=== PATIENT | female | born 1965 | race Caucasian/White ===

== ENCOUNTER → 2018-03-30 | Outpatient (CLI) | payer BC ==
--- NOTE | 2018-03-30 11:58 | ECHOF ---
Referral Reason:[id number],R00.2 palpitations, R53.83 fatigue MEASUREMENTS -------- HEIGHT: 165.1 cm WEIGHT: 72.6 kg BP: IVSd: 1.1 cm (0.6 - 1.1) LVIDd: 3.6 cm (3.9 - 5.3) LVPWd: 1.1 cm (0.6 - 1.1) IVSs: 1.6 cm LVIDs: 2.3 cm LVPWs: 1.7 cm LAESV Index (A-L): 27.00 ml/m Ao Diam: 3.0 cm (2.0 - 3.7) AV Cusp: 1.9 cm (1.5 - 2.6) LA Diam: 3.4 cm (2.7 - 3.8) MV EXCURSION: 11.844 mm (> 18.000) MV EF SLOPE: 105 mm/s (70 - 150) EPSS: 0.1 cm MV E Barry: 0.73 m/s MV DecT: 222 ms MV A Barry: 0.71 m/s MV E/A Ratio: 1.03 RAP: 5.00 mmHg RVSP: 19.66 mmHg FINDINGS -------- Sinus rhythm. This was a technically good study. The left ventricular size is normal. Left ventricular wall thickness is normal. Overall left vent ricular systolic function is normal with, an EF between 55 - 60 %. The right ventricle is normal in size and function. The left atrium is normal in size. The right atrium is normal in size. The aortic valve is trileaflet and appears structurally normal. The mitral valve leaflets are mildly thickened. Mild mitral regurgitation is present. Mild tricuspid regurgitation present. The right ventricular systolic pressure, as measured by Doppl er, is 19.66mmHg. Pulmonic valve appears structurally normal. The aortic root size is normal. Normal inferior vena cava with normal inspiratory collapse consistent with estimated right atrial pre ssure of 5 mmHg. The pericardium is normal. CONCLUSIONS -------- 1. Sinus rhythm. 2. This was a technically good study. 3. The left ventricular size is normal. 4. Left ventricular wall thickness is normal. 5. Overall left ventricular systolic function is normal with, an EF between 55 - 60 %. 6. The right ventricle is normal in size and function. 7. The left atrium is normal in size. 8. The right atrium is normal in size. 9. The aortic valve is trileaflet and appears structurally normal. 10. The mitral valve leaflets are mildly thickened. 11. Mild mitral regurgitation is present. 12. Mild tricuspid regurgitation present. 13. The right ventricular systolic pressure, as measured by Doppler, is 19.66mmHg. 14. Pulmonic valve appears structurally normal. 15. The aortic root size is normal. 16. Normal inferior vena cava with normal inspiratory collapse consistent with estimated right atrial pressure of 5 mmHg. 17. The pericardium is normal. WIRE WEAVER: Marion Chavez RDCS
--- NOTE | 2018-03-31 12:00 | ECHOS ---
STRESS ECHOCARDIOGRAM INDICATIONS: Hypertension. MEDICATIONS: Detrol, Hyzaar, Lexapro BASELINE HEART RATE: 74 BASELINE BLOOD PRESSURE: 132/81 MAXIMUM HEART RATE: 143 MAXIMUM BLOOD PRESSURE: 174/78 85% MPHR: 140 100% MPHR: 165 METS: 9.7 MAXIMUM STAGE REACHED: II TOTAL EXERCISE TIME: 8:18 CLINICAL INFORMATION: The peak heart rate of 143 was achieved. Maximum blood pressure 174/78 mmHg was noted. Resting EKG shows normal sinus rhythm with normal [place] interval and QRS duration and normal ST-T waves. No ST-segment depression suggestive of ischemia is noted. FINAL IMPRESSION: This stress test is not suggestive of ischemia. Patient's exercise tolerance is normal. No dysrhythmias are noted. MMODL / IJN: [id number] /
== END | disposition home or self-care (01) ==
LOC: RADECHMAIN 08:09
PROVIDERS: ATTEND Family Medicine
DX: I08.1 Rheumatic disorders of both mitral and tricuspid valves (principal); I10 Essential (primary) hypertension
CPT/HCPCS: 93017; 93306

== ENCOUNTER → 2018-04-08 | Outpatient (CLI) | payer BC ==
--- NOTE | 2018-04-14 14:02 | MM ---
Reason for exam: screening (asymptomatic). Last mammogram was performed 5 years and 10 months ago. History: Patient has history of other cancer at age 26 and is nulliparous. Physical Findings: A clinical breast exam by your physician is recommended on an annual basis and results should be correlated with mammographic findings. MG 3D Screening Mammo W/Cad Bilateral CC and MLO view(s) were taken. Prior study comparison: June 18, 2012, mammogram, performed at [facility]. The breast tissue is heterogeneously dense. This may lower the sensitivity of mammography. No significant changes when compared with prior studies. ASSESSMENT: Benign, BI-RAD 2 RECOMMENDATION: Routine screening mammogram of both breasts in 1 year.
== END ==
LOC: RADMAMWWP 08:08
PROVIDERS: ATTEND Family Medicine
DX: Z12.31 Encounter for screening mammogram for malignant neoplasm of breast (principal)
CPT/HCPCS: 77063; 77067

== ENCOUNTER → 2019-06-18 | Outpatient (CLI) | payer BC ==
--- NOTE | 2019-06-18 11:50 | XR ---
EXAMINATION TYPE: XR cervical spine comp DATE OF EXAM: 06/18/2019 TECHNIQUE: Frontal, lateral, oblique, and open mouth view of the cervical spine are obtained. HISTORY: M54.2 Cervicalgia pain radiates into right arm. COMPARISON: None FINDINGS: The cervical spine is visualized in its entirety from C1 thru the top of T1 level, it is s atisfactory in alignment without evidence of acute fracture or dislocation. The pre-vertebral soft t issue appears within normal limits. The C1-C2 articulation is within normal limits on the open mouth view. Vertebral body heights are maintained. Mild disc space narrowing C5-C6 level. The oblique hien ges are within normal limits. Suspect focal moderate calcified plaque right carotid bulb level. IMPRESSION: Mild disc space narrowing C5-C6 level.
--- NOTE | 2019-06-18 11:53 | XR ---
EXAMINATION TYPE: XR lumbosacral spine min 4V DATE OF EXAM: 06/18/2019 CLINICAL HISTORY: Back pain radiating into left leg for 6 months. TECHNIQUE: Frontal, lateral, and oblique images of the lumbar spine are obtained. COMPARISON: None. FINDINGS: There are 5 lumbar type vertebral bodies identified. The lumbar spine shows satisfactory alignment without evidence of acute fracture or dislocation. There is severe disc space narrowing wit h vacuum disc phenomenon and mild to moderate anterior spurring and endplate sclerosis L5-S1 level ot herwise vertebral body heights and disk space heights are within normal limits. Some facet arthropath y lower lumbar levels. The oblique images appear within normal limits. The overlying soft tissue ap pears unremarkable. IMPRESSION: As above.
== END | disposition home or self-care (01) ==
LOC: RADXRMAIN 11:12
PROVIDERS: ATTEND Family Medicine
DX: M99.71 Connective tissue and disc stenosis of intervertebral foramina of cervical region (principal); M99.73 Connective tissue and disc stenosis of intervertebral foramina of lumbar region; M46.96 Unspecified inflammatory spondylopathy, lumbar region
CPT/HCPCS: 72050; 72110

== ENCOUNTER → 2020-03-29 | Outpatient (CLI) | payer BC ==
--- NOTE | 2020-03-29 20:05 | MR ---
MRI CERVICAL SPINE: CLINICAL HISTORY: Right upper extremity radiculopathy per order. Neck pain causing numbness into righ t arm and fingers for over one year per patient. TECHNIQUE: Multiplanar, multisequence imaging of the cervical spine is performed without IV contrast. COMPARISON: Cervical spine x-ray June 18, 2019. FINDINGS: Coronal images show slight ductal convex scoliotic curvature positioning centered in the up per to mid thoracic spine. Sagittal images of the cervical spine show the craniocervical junction to appear within normal limits. The cervical and upper thoracic spinal cord is normal in course, calibe r, and signal. Vertebral alignment is satisfactory on sagittal images. The vertebral body and intra vertebral disk heights are normal. The bone marrow signal intensity is within normal limits. Axial images show C2-C3 level to appear within normal limits. Axial images at C3-C4 level show left-sided uncovertebral facet degenerative change causing asymmetri c mild left-sided neural foraminal narrowing. Axial images at C4-C5 level are felt within normal limits. Axial images at the C5-C6 level show uncovertebral facet degenerative changes bilaterally. In additio n there is broad-based posterior disc protrusion that has more prominent right paracentral/foraminal disc protrusion component axial image 24 and sagittal image 8 effacing anterolateral thecal sac. The re is effacement up to the ventral surface of spinal cord. There is advanced right and moderate left- sided neural foraminal narrowing. Axial images at the C6-C7 and C7-T1 levels are felt within normal limits. IMPRESSION: Attention to C5-C6 level where there is most prominent degenerative change. There is adva nced right-sided neural foraminal narrowing due to eccentric component of disc herniation noted likel y accounting for patient's right upper extremity radiculopathy type symptoms.
== END | disposition home or self-care (01) ==
LOC: RADMRIMAIN 18:54
PROVIDERS: ATTEND Family Medicine
DX: M48.02 Spinal stenosis, cervical region (principal); M47.22 Other spondylosis with radiculopathy, cervical region
CPT/HCPCS: 72141

== ENCOUNTER → 2021-09-13 | Outpatient (CLI) | payer BC ==
--- NOTE | 2021-09-14 11:51 | MM ---
Reason for exam: additional evaluation requested from prior study. Last mammogram was performed 2 years ago. History: Patient has history of other cancer at age 26 and is nulliparous. Physical Findings: Nurse did not find any significant physical abnormalities on exam. MG 3D Diag Mammo W/Cad JENNIFER Bilateral CC and MLO view(s) were taken. LM, spot compression MLO, CC with magnification, and LM with magnification view(s) were taken of the left breast. Prior study comparison: August 30, 2019, bilateral MG 3d screening mammo w/cad. April 08, 2018, bilateral MG 3d screening mammo w/cad. The breast tissue is heterogeneously dense. This may lower the sensitivity of mammography. Grouped calcifications left upper outer quadrant posteriorly appear increased but become less apparent on magnification views, 6 month follow up recommended. Left MLO subareolar density disperses on additional views. These results were verbally communicated with the patient and result sheet given to the patient on 09/13/21. ASSESSMENT: Incomplete: need additional imaging evaluation, BI-RAD 0 RECOMMENDATION: Ultrasound of both breasts. (as ordered)
--- NOTE | 2021-09-14 11:52 | USB ---
Reason for exam: additional evaluation requested from abnormal screening. History: Patient has history of other cancer at age 26 and is nulliparous. US Breast BILAT Right complete breast ultrasound includes all four quadrants, the retroareolar region and axilla. Finding demonstrates no cystic or solid lesion seen. Left complete breast ultrasound includes all four quadrants, the retroareolar region and axilla. Finding demonstrates no cystic or solid lesion seen. These results were verbally communicated with the patient and result sheet given to the patient on 09/13/21. ASSESSMENT: Probably benign, BI-RAD 3 RECOMMENDATION: Follow-up diagnostic mammogram of the left breast in 6 months.
== END | disposition home or self-care (01) ==
LOC: RADMAMWWP 14:10
PROVIDERS: ATTEND Family Medicine
DX: N63.0 Unspecified lump in unspecified breast (principal); N64.4 Mastodynia
CPT/HCPCS: 77062; 77066

== ENCOUNTER → 2023-04-02 | Outpatient (CLI) | payer OTHER ==
--- NOTE | 2023-04-03 08:47 | MR ---
EXAMINATION TYPE: MR cervical spine wo con DATE OF EXAM: 04/02/2023 8:25 PM CLINICAL INDICATION:Female, 58 years old with history of M50.20 DISC DISPLACEMENT M62.81 WEAKNESS; P HH, Neck pain that radiates into left arm and into fingers. COMPARISON: 03/29/2020. TECHNIQUE: Multi planar, multi sequence imaging was performed utilizing: T1-weighted, T2-weighted, an d turbo inversion recovery imaging of the cervical spine. IV Contrast: cc none FINDINGS: Alignment: The cervical vertebral bodies have preserved heights. Alignment is within normal limits gi nikki patient positioning. Bones: Scattered Modic endplate changes with osteophytes and disc space narrowing. Multilevel degener ative disc disease is noted and most pronounced at the C5-C7 vertebral levels. Cord: The spinal cord is unremarkable with regards to their signal intensity and morphology. Discs: Multilevel disc desiccation is present. C2-C3: No significant disc pathology. The spinal canal is patent. No neural foraminal stenosis. C3-C4: No significant disc pathology. The spinal canal is patent. No neural foraminal stenosis. C4-C5: No significant disc pathology. The spinal canal is patent. No neural foraminal stenosis. C5-C6: A disc osteophyte complex is present with mild spinal canal stenosis. Bilateral facet and unc overtebral joint arthropathy are present with moderate bilateral neural foraminal stenosis. C6-C7: No significant disc pathology. The spinal canal is patent. Bilateral facet and uncovertebral joint arthropathy are present with mild bilateral neural foraminal stenosis. C7-T1: No significant disc pathology. The spinal canal is patent. No neural foraminal stenosis. Other: Trace pericardial fluid present. IMPRESSION: 1. No evidence for disc herniation or significant spinal canal stenosis. 2. Multilevel disc degeneration with associated osteoarthritic changes worse at C5-C6 with mild spina l canal and moderate bilateral neural foraminal stenosis.
== END | disposition home or self-care (01) ==
LOC: RADMRIMAIN 19:32
PROVIDERS: ATTEND Orthopaedic Surgery
DX: M47.812 Spondylosis without myelopathy or radiculopathy, cervical region (principal); M50.20 Other cervical disc displacement, unspecified cervical region; M62.81 Muscle weakness (generalized); M99.71 Connective tissue and disc stenosis of intervertebral foramina of cervical region
CPT/HCPCS: 72141